=== PATIENT | female | born 1970 | race Hispanic/Latino ===

== ENCOUNTER 2018-11-05 23:51 | Emergency (ER) | payer SELFPAY ==
--- NOTE | 2018-11-06 00:52 | ED PDOC ---
Arrival/HPI - General Chief Complaint: GI Problem Time Seen by Provider: 11/06/18 00:09 Historian: Patient - History of Present Illness Narrative History of Present Illness (Text): 11/06/18 00:52 48 year old Swedish speaking female, whose past medical history includes history of Crohn's Disease, presents to the emergency department complaining of bloody stool that began today associated with lower abdominal pain. Patient reports 3 episodes of liquid blood, but denies any straining. She states the lower abdominal pain is constant and is worse on the left lower abdomen. Patient denies taking any medication for the pain. She is currently taking antibiotics for a UTI prescribed by her PMD. The patient denies any fever, chills, chest pain, shortness of breath, nausea, vomiting, diarrhea, urinary symptoms, back pain, neck pain, headache, dizziness, or any other complaints. Time/Duration: Other (today) Symptom Onset: Gradual Symptom Course: Unchanged Activities at Onset: Light Context: Home Past Medical History - Provider Review Nursing Documentation Reviewed: Yes - Infectious Disease Hx of Infectious Diseases: None Family/Social History - Physician Review Nursing Documentation Reviewed: Yes Family/Social History: No Known Family HX Allergies/Home Meds Allergies/Adverse Reactions: Allergies Iodinated Contrast- Oral and IV Dye Allergy (Verified 11/06/18 02:20) SHORTNESS OF BREATH amoxicillin [From Augmentin] Adverse Reaction (Verified 11/06/18 00:20) RASH clavulanic acid [From Augmentin] Adverse Reaction (Verified 11/06/18 00:20) RASH diclofenac [From Cataflam] Adverse Reaction (Verified 11/06/18 00:20) RASH Home Medications: Home Meds Medication Instructions Recorded Confirmed Dicyclomine [Bentyl] 1 tab PO DAILY 11/06/18 11/06/18 Famotidine [Pepcid] 1 tab PO DAILY 11/06/18 11/06/18 Magnesium Oxide [Magox 400] 1 tab PO DAILY 11/06/18 11/06/18 Mesalamine [Apriso] 1 tab PO DAILY 11/06/18 11/06/18 metroNIDAZOLE [Flagyl] 1 tab PO DAILY 11/06/18 11/06/18 Review of Systems - Physician Review All systems were reviewed & negative as marked: Yes - Review of Systems Constitutional: absent: Fevers, Other (Chills) Respiratory: absent: SOB Cardiovascular: absent: Chest Pain Gastrointestinal: Abdominal Pain, Hematochezia. absent: Diarrhea, Nausea, Vomiting Genitourinary Female: absent: Dysuria, Frequency, Hematuria Musculoskeletal: absent: Back Pain, Neck Pain Neurological: absent: Headache, Dizziness Physical Exam Vital Signs Reviewed: Yes Vital Signs Temp Pulse Resp BP Pulse Ox 11/06/18 00:49 80 18 108/69 98 11/06/18 00:04 98.3 F 76 18 99/56 L 100 Temperature: Afebrile Blood Pressure: Hypotensive Pulse: Regular Respiratory Rate: Normal Appearance: Positive for: Well-Appearing, Non-Toxic, Comfortable Pain Distress: None Mental Status: Positive for: Alert and Oriented X 3 - Systems Exam Head: Present: Atraumatic, Normocephalic Pupils: Present: PERRL Extroacular Muscles: Present: EOMI Conjunctiva: Present: Normal Mouth: Present: Moist Mucous Membranes Neck: Present: Normal Range of Motion Respiratory/Chest: Present: Clear to Auscultation, Good Air Exchange. No: Respiratory Distress, Accessory Muscle Use Cardiovascular: Present: Regular Rate and Rhythm, Normal S1, S2. No: Murmurs Abdomen: Present: Tenderness (lower abdominal tenderness Left >Right). No: Distention, Peritoneal Signs Rectal: Present: Other (Guaiac test positive. Faint liquid pinish color stool). No: Hemorrhoids, Nodule/Mass/Lesions Back: Present: Normal Inspection Upper Extremity: Present: Normal Inspection. No: Cyanosis, Edema Lower Extremity: Present: Normal Inspection. No: Edema Neurological: Present: GCS=15, CN II-XII Intact, Speech Normal Skin: Present: Warm, Dry, Normal Color. No: Rashes Psychiatric: Present: Alert, Oriented x 3, Normal Insight, Normal Concentration Medical Decision Making ED Course and Treatment: 11/06/18 00:52 Impression: 48 year old female presents complaining of hematochezia associated with left lower abdominal pain that began today. Plan: -- Labs -- CT Abd & Pelvis IV Contrast -- Urinalysis -- POC Urine Preg. test -- Reassess and disposition Progress Notes: EXAM: CT Abdomen and Pelvis Without IV contrast Electronically signed on Nov 06, 2018 4:27:31 AM EST by: Oumar Bustos M.D., IMPRESSION: Several calcified gallstones are noted. Otherwise negative study 11/06/18 05:27 Patient had no noted blood in the emergency room. Patient is in no acute distress. I have discussed the results and plan with the patient, who expresses understanding. Patient given the opportunity to ask question, all questions were answered and there is agreement with the plan to discharge the patient home. Patient is stable for discharge. Patient states she will follow up with her PMD in [place]. Patient was instructed to follow up with physician/clinic in 1-2 days or return if symptoms persist/worsen or new concerning symptoms arise. - RAD Interpretation Radiology Orders: 11/06/18 00:32 ABD & PELVIS IV CONTRAST ONLY [CT] Stat - Scribe Statement The provider has reviewed the documentation as recorded by the Scribe Sven Waters Provider Scribe Attestation: All medical record entries made by the Scribe were at my direction and personally dictated by me. I have reviewed the chart and agree that the record accurately reflects my personal performance of the history, physical exam, medical decision making, and the department course for this patient. I have also personally directed, reviewed, and agree with the discharge instructions and disposition. Disposition/Present on Arrival - Present on Arrival Any Indicators Present on Arrival: No History of DVT/PE: No History of Uncontrolled Diabetes: No Urinary Catheter: No History of Decub. Ulcer: No History Surgical Site Infection Following: None - Disposition Have Diagnosis and Disposition been Completed?: Yes Diagnosis: Rectal bleeding, Anemia Disposition: HOME/ ROUTINE Disposition Time: 05:21 Patient Plan: Discharge Patient Problems: Current Active Problems Problem Status Onset Rectal bleeding Acute Anemia Acute Condition: STABLE Discharge Instructions (ExitCare): Gastrointestinal Bleeding (DC), Normocytic Normochromic Anemia (DC) Additional Instructions: JUANA PACHECO, thank you for letting us take care of you today. Your provider was Saskia Soto MD and you were treated for BLOOD IN URINE. The emergency medical care you received today was directed at your acute symptoms. If you were prescribed any medication, please fill it and take as directed. It may take several days for your symptoms to resolve. Return to the Emergency Department if your symptoms worsen, do not improve, or if you have any other problems. Please contact your doctor in 2 days for a follow up appointment. Bring any paperwork you were given at discharge with you along with any medications you are taking to your follow up visit. Our treatment cannot replace ongoing medical care by a primary care provider outside of the emergency department. Thank you for allowing the [facility] team to be part of your care today. Forms: [employer] (Serbian), WORK NOTE
[2018-11-06 01:06] LABS: INR 1.05; PARTIAL THROMBOPLASTIN TIME 28.2 Seconds (25.1-36.5)
[2018-11-06 01:09] LABS: ALBUMIN 3.6 g/dL (3.0-4.8); ALT/SGPT 39 U/L (7-56); AMYLASE 41 U/L (35-125); AST/SGOT 27 U/L (14-36); BASO # 0.03 K/mm3 (0.0-2.0); BASO % 0.3 % (0.0-3.0); BLOOD UREA NITROGEN 15 mg/dL (7-21); CALCIUM 8.8 mg/dL (8.4-10.5); EOS # 0.3 (0.0-0.7); GFR NON-AFRICAN AMERICAN > 60; GRAN # 3.78 (1.4-6.5); GRAN % 43.2 % (50.0-68.0); HEMOGLOBIN 11.2 g/dL (12.0-16.0); LIPASE 49 U/L (23-300); LYMPH # 4.2 (1.2-3.4); LYMPH % 47.6 % (22.0-35.0); MEAN CELL VOLUME 87.3 fl (80.0-105.0); MEAN CORPUSCULAR HEMOGLOBIN 27.8 pg (25.0-35.0); MEAN CORPUSCULAR HGB CONC 31.8 g/dl (31.0-37.0); MEAN PLATELET VOLUME 10.5 fl (7.0-11.0); MONO # 0.5 (0.1-0.6); MONO % 5.9 % (1.0-6.0); RBC 4.03 10^6/uL (3.5-6.1); RED CELL DISTRIBUTION WIDTH 12.8 % (11.5-14.5); WHITE BLOOD COUNT 8.8 10^3/uL (4.5-11.0)
[2018-11-06 01:29] LABS: URINE BILIRUBIN NEGATIVE (NEGATIVE); URINE BLOOD NEGATIVE (NEGATIVE); URINE GLUCOSE (UA) NEGATIVE (NEGATIVE); URINE LEUKOCYTE ESTERASE NEGATIVE Leu/uL (NEGATIVE); URINE PROTEIN NEGATIVE mg/dL (<30 mg/dL); URINE UROBILINOGEN 0.2 E.U./dL (<1 E.U./dL)
[2018-11-06 01:31] LABS: URINE APPEARANCE CLEAR (CLEAR); URINE COLOR YELLOW (YELLOW)
[2018-11-06 04:26] VITALS: O2SAT 99
[2018-11-06 05:52] VITALS: BP 102/68; PULSE 75; RESP 18; TEMP 98
--- NOTE | 2018-11-06 15:06 | CT ---
PROCEDURE: CT Abdomen and Pelvis without Oral or IV contrast. HISTORY: gib/abd pain COMPARISON: None available. TECHNIQUE: Contiguous axial images of the abdomen and pelvis. No oral or IV contrast administered. Coronal and Sagittal reformats generated and reviewed. Radiation dose: Total exam DLP = 615.29 mGy-cm. This CT exam was performed using one or more of the following dose reduction techniques: Automated exposure control, adjustment of the mA and/or kV according to patient size, and/or use of iterative reconstruction technique. FINDINGS: There is limited evaluation of the solid organs without the administration of IV contrast. LOWER THORAX: No visible consolidation, pleural effusion, or pneumothorax. LIVER: Unremarkable unenhanced appearance. GALLBLADDER AND BILE DUCTS: Cholelithiasis. PANCREAS: Unremarkable unenhanced appearance. SPLEEN: Unremarkable unenhanced appearance. ADRENALS: Unremarkable unenhanced appearance. KIDNEYS AND URETERS: No hydronephrosis or obstructing renal calculus. BLADDER: The urinary bladder appears unremarkable. REPRODUCTIVE: Uterus is present. APPENDIX: No secondary signs of acute appendicitis. BOWEL: The stomach is nondistended. Lack of oral contrast limits evaluation for bowel pathology. The bowel loops appear within normal limits of caliber without evidence of intestinal obstruction. PERITONEUM: No significant free fluid. No definite free air. LYMPH NODES: No bulky lymphadenopathy identified. VASCULATURE: No atherosclerotic calcifications of the aorta. No aortic aneurysm. BONES: Degenerative changes of the spine. OTHER FINDINGS: None. IMPRESSION: Cholelithiasis. Preliminary impression was provided by [employer].
== END 2018-11-06 05:39 | disposition home or self-care (01) ==
LOC: ED 23:51
DX: D64.9 Anemia, unspecified (principal); K62.5 Hemorrhage of anus and rectum